=== PATIENT | female | born 1995 | race Two or more races ===

== ENCOUNTER 2017-10-24 22:07 | Emergency (ER) | payer SELFPAY ==
[~2017-10-24] VITALS: Ht 172.7 cm; Wt 68.2 kg
[2017-10-24 22:13] VITALS: BP 115/77
== END 2017-10-24 23:55 | disposition home or self-care (01) ==
LOC: ER 22:07
DX: S00.31XA Abrasion of nose, initial encounter (principal); F10.129 Alcohol abuse with intoxication, unspecified; Y08.89XA Assault by other specified means, initial encounter; Y93.89 Activity, other specified; Y92.89 Other specified places as the place of occurrence of the external cause; Y99.8 Other external cause status
CPT/HCPCS: 99283